=== PATIENT | male | born 1955 | race Caucasian/White ===

== ENCOUNTER → 2017-06-27 | Day surgery (SDC) | payer OTHER ==
[2017-06-21 08:22] VITALS: Ht 188 cm; Wt 100.0 kg
[~2017-06-27] VITALS: Ht 188 cm; Wt 100.0 kg
[~2017-06-27] MED LIST: CLB/200 PO; LIDOCAINE HCL 2% 2 ML VIAL (20MG/ML) ONE; OMEP20CA9 PO; POTA540T PO; PROPOFOL IV EMULSION 10 MG/ML 20 ML VIAL IV ONE; SODIUM CHLORIDE 0.9% 500ML 500 ML IV ONE; TAMS0.4C38 PO
--- NOTE | 2017-06-27 10:55 | Endo History and Physical ---
History & Physical Date of Service: Jun 27, 2017. Chief Complaint: Dysphagia, Reflux Referring Physician: Dr Kamilla Marrero History of Present Illness dysphagia, reflux Past Surgical History Hx Cardiac Surgery: No Hx Internal Defibrillator: No Hx Pacemaker: No Hx Abdominal Surgery: No Hx of Implantable Prosthesis: No Hx Post-Op Nausea and Vomiting: No Hx Cancer Surgery: No Hx Thoracic Surgery: No Hx Orthopedic: No Hx Urinary Tract Surgery: Yes (LITHOTRIPSY) Family History None Social History Smoking Status: Never Smoker Hx Substance Use: No Hx Alcohol Use: No Allergies Coded Allergies: No Known Allergies (Verified , 06/27/17) Current Medications Reported Home Medications Medications Dose Route/Sig Max Daily Dose Days Date Category Potassium Citrate (Potassium Citrate (Alkalinizer) 540 Mg Tab 1 Tab PO DAILY PRN 06/21/17 Reported CeleBREX (Celecoxib) 200 Mg Cap 200 Mg PO BID 06/21/17 Reported Flomax (Tamsulosin Hcl) 0.4 Mg Cap 0.4 Mg PO QPM 06/21/17 Reported Prilosec (Omeprazole) 20 Mg Cap 20 Mg PO QPM 06/21/17 Reported Vital Signs Weight (Kilograms): 100 Height (Feet): 6 Height (Inches): 2 Date Time Temp Pulse Resp B/P (MAP) Pulse Ox O2 Delivery O2 Flow Rate FiO2 06/27/17 09:31 36.5 56 20 101/71 (81) 96 Room Air Physical Exam General Appearance: no apparent distress Respiratory/Chest: Auscultation: breath sounds normal Cardiovascular: Heart Auscultation: RRR Abdomen: Inspection & Palpation: soft Assessment and Plan GERD - EGD
--- NOTE | 2017-06-27 11:46 | Anesthesiology Progress Note ---
Anesthesia Post Op Note Date & Time Jun 27, 2017 at 11:46 Vital Signs Vital Signs Past 12 Hours Date Time Temp Pulse Resp B/P (MAP) Pulse Ox O2 Delivery O2 Flow Rate FiO2 06/27/17 11:40 59 18 117/68 (84) 96 Room Air 06/27/17 11:25 66 16 96/66 (76) 96 Room Air 06/27/17 09:31 36.5 56 20 101/71 (81) 96 Room Air Notes Mental Status: alert / awake / arousable, participated in evaluation Pt Amnestic to Procedure: Yes Nausea / Vomiting: adequately controlled Pain: adequately controlled Airway Patency, RR, SpO2: stable & adequate BP & HR: stable & adequate Hydration State: stable & adequate Anesthetic Complications: no major complications apparent
--- NOTE | 2017-06-27 11:52 | GI REPORT ---
Procedure Date: 06/27/2017 9:37 AM Procedure: Upper GI endoscopy Indications: Dysphagia Medicines: See the Anesthesia note for documentation of the administered medications Complications: No immediate complications. Estimated Blood Loss: Estimated blood loss: none. Procedure: Pre-Anesthesia Assessment: - ASA Grade Assessment: II - A patient with mild systemic disease. After obtaining informed consent, the endoscope was passed under direct vision. Throughout the procedure, the patient's blood pressure, pulse, and oxygen saturations were monitored continuously. The scope was introduced through the mouth, and advanced to the second part of duodenum. The upper GI endoscopy was accomplished without difficulty. The patient tolerated the procedure well. Findings: There was a mild ring at 35 cm. There was a mild ring at the GE junction at 40 cm. There was a small hiatal hernia. There were a few small antral erosions. The stomach was otherwise normal. The duodenum was normal. A TTS balloon was inflated to 20 mm over the distal and GE junction ring. The ring was then fractured with a biopsy forceps. Recommendation: - Continue PPI therapy. - Discharge patient to home. Mike Casas M.D. Mike Casas MD 06/27/2017 11:52:01 AM This report has been signed electronically. Note Initiated On: 06/27/2017 9:37 AM I attest to the content of the Intraoperative Record and orders documented therein, exceptions below
--- NOTE | 2017-06-27 11:53 | Discharge Instructions ---
Endoscopy Patient Instructions Date / Procedure(s) Performed Jun 27, 2017. EGD Allergy Information Coded Allergies: No Known Allergies (Verified , 06/27/17) Discharge Date / Findings Jun 27, 2017. Ring at GE junction, ring at lower esophagus. Mild antral gastritis. Dilated, biopsies. Provider Instructions Activity Restrictions - No exercising or heavy lifting for 24 hours. - Do not drink alcohol the day of the procedure. - Do not drive a car or operate machinery until the day after the procedure. - Do not make any important decisions or sign important papers in 24 hours after the procedure. Following Day: - Return to full activity which may include returning to work/school. Diet Start your diet with liquids and light foods (jello, soup, juice, toast). Then eat your usual diet if not nauseated. Treatment For Common After Affects For mild abdominal pain, bloating, or excessive gas: - Rest - Eat lightly - Lie on right side Follow-Up Information Follow-up with Dr Brizuela, Dr Kohli as scheduled Anesthesia Information What You Should Know You have had a procedure that required some medicine to reduce anxiety and discomfort. This treatment is called moderate sedation. After receiving the treatment, you may be sleepy, but you will be able to breathe on your own. The effects of the treatment may last for several hours. Follow these instructions along with Activity/Diet recommendations noted above: * Do NOT do anything where dizziness or clumsiness would be dangerous. * Rest quietly at home today, then you can be up and about tomorrow. * Have a responsible person stay with you the rest of today. * You may have had an I.V. today. If so, you may take the dressing off later today. Recommendations Call your doctor if: * Trouble breathing * Continuous vomiting for more than 24 hours * Temperature above 101 degrees * Severe abdominal pain or bloating * Pain not relieved by pain medicine ordered * There is increased drainage or redness from any incision * A large amount of rectal bleeding greater than 2-3 tablespoons. (If you had a polyp/s removed or have hemorrhoids, a small amount of blood - from the rectum is to be expected.) * You have any unanswered questions or concerns. IN THE EVENT OF A SERIOUS EMERGENCY, GO TO THE NEAREST EMERGENCY ROOM Your discharge instructions were prepared by provider Mike Ann. Patient Instructions Signature Page Reyes Avendano Patient (or Guardian) Signature/Date: I have read and understand the instructions given to me by my caregivers. Caregiver/RN/Doctor Signature/Date: The above-named patient and/or guardian has received patient instructions on this date. + Original Patient Signature Page (only) stays with chart. Please make copy for patient.
[2017-06-27 11:56] VITALS: BP 118/85; PULSE 58; O2SAT 96
== END | disposition home or self-care (01) ==
LOC: C.GI 09:08
PROVIDERS: ATTEND Internal Medicine Gastroenterology
DX: R13.10 Dysphagia, unspecified (principal); K21.9 Gastro-esophageal reflux disease without esophagitis; K29.50 Unspecified chronic gastritis without bleeding; K20.9 Esophagitis, unspecified; G47.33 Obstructive sleep apnea (adult) (pediatric); K44.9 Diaphragmatic hernia without obstruction or gangrene; Z79.899 Other long term (current) drug therapy; Z90.89 Acquired absence of other organs

== ENCOUNTER 2018-12-02 09:47 | Inpatient (IN) ==
--- NOTE | 2018-11-08 12:30 | PAT Medication Instructions ---
Medication Instructions Date of Service November 08, 2018 Home Medications omeprazole 20 mg PO DAILY PRN potassium citrate 10 meq PO DAILY PRN tamsulosin 0.4 mg PO HS PRN naproxen 500 mg PO BID ASK your surgeon for instructions naproxen 500 mg PO BID DO NOT take the morning of surgery potassium citrate 10 meq PO DAILY PRN Take morning of surgery With a small sip of water, OTHERWISE NOTHING TO EAT OR DRINK AFTER MIDNIGHT: omeprazole 20 mg PO DAILY PRN (if needed) Take evening before surgery tamsulosin 0.4 mg PO HS PRN (if needed) Other Notes If you have any questions please call us at [phone] or [phone] or [phone] or [phone]
--- NOTE | 2018-11-13 10:46 | Anesthesiology Consultation ---
Date of Service November 13, 2018 Assessment & Plan (1) Encounter for pre-operative examination: - S/P L3-L4 decompression/fusion: 04/24/18: Grade view 1, MAC 3, ETT 8.0 at [facility] Chart Review Chart Review: Acceptable Risk for Surgery (pending surgeon-ordered PCP clearance scheduled 11/22 (Chata)) and Patient seen in Pre Admission Testing Teaching & Discussion Pre-Anesthesia Teaching/Discussion Notes: Instructed NPO after midnight before surgery,except medications with 15 cc of water. Medication instructions provided according to the PAT guidelines. History Surgery Operation Date: 12/02/18 11:50 Proposed Procedures p Left Total Hip Arthroplasty - Andrew Onofre Height/Weight Height: 6 ft 1 in Weight: 106.5 kg Allergies Allergy/AdvReac Type Severity Reaction Status Date / Time No Known Allergies Allergy Verified 11/07/18 08:19 Medications Home Medications Medication Instructions Recorded Confirmed Last Taken omeprazole 20 mg PO DAILY PRN 04/16/18 11/07/18 04/24/18 05:30 potassium citrate 10 meq PO DAILY PRN 04/16/18 11/07/18 04/17/18 08:00 tamsulosin 0.4 mg PO HS PRN 04/16/18 11/07/18 04/22/18 20:00 naproxen 500 mg PO BID 11/07/18 11/07/18 Unknown Past Medical History Medical History Degenerative disc disease GERD (gastroesophageal reflux disease) CONTROLLED Hemochromatosis LAST PHLEBOTOMY SEVERAL MONTHS AGO; PER PATIENT, HEMATOLOGY AWARE OF UPCOMING PROCEDURE AND STATES PHLEBOTOMY NOT NEEDED PRIOR TO PROCEDURE GIVEN MOST RECENT LABS Kidney stones Osteoarthritis Sleep apnea RADHA= NO DEVICE S/P UPPP Exercise / Class Metabolic Activity II 4-5 Yardwork/Stairs/Walk up hill Past Family History Family History Other No pertinent family history Past Surgical History Surgical History Fusion of spine LUMBAR History of colonoscopy History of cystoscopy History of esophagogastroduodenoscopy (EGD) History of lithotripsy History of tonsillectomy S/P UPPP (uvulopalatopharyngoplasty) Past Anesthesia History No Hx of Anesthesia Complications and No Family Hx of Anesthesia Complications History of PONV No Hx of PONV and No Hx of Motion Sickness Social History Smoking Status: Never smoker Do You Dip or Chew Tobacco: No Hx Alcohol Use: Yes Alcohol type: beer, wine and hard liquor alcohol intake frequency: holidays/special occasions only Hx Substance Use: No substance use type: does not use Review of Systems Patient denies chest pain, shortness of breath, dyspnea on exertion, cough, wheezing, palpitations. Physical Exam Vital Signs VITALS BP 105/73 (BP typically low to normal range per patient) P 64 TEMP 98.4 SP02 97%RA RESP 16 PHYSICAL Full neck and c-spine range of motion. Full TMJ range of motion. TMD 3.5 finger breaths Mallampati Score 3 Dentition: intact, crowns on molars Lungs: clear throughout to auscultation Cardiac: regular rate and rhythm, no murmurs noted Spine: normal Carotid arteries: negative bruit Extremities: no edema Testing Laboratory Results 11/13/18 11:00 11/13/18 11:00 11/13/18 11/13/18 11/13/18 11:00 11:00 11:00 PT 11.7 INR 1.2 H APTT 26.5 Urine Color Yellow Urine Appearance Clear Urine pH 5.0 Ur Specific [place] 1.021 Urine Protein Negative Urine Glucose (UA) Negative Urine Ketones Negative Urine Nitrite Negative Ur Leukocyte Esterase Negative Blood Type O Positive Antibody Screen NEGATIVE Electrocardiogram Date: 04/17/18 NSR at 64bpm. LAD. Chest X-Ray Date: 04/17/19 Findings: + NAD
[2018-11-13 11:59] LABS: Basophils # (auto) 0.01 K/uL (0-0.2); Basophils % (auto) 0.3 %; Eosinophils # (auto) 0.11 K/uL (0-0.5); Eosinophils % (auto) 2.8 %; Hematocrit (blood only) 45.9 % (42-52); Hemoglobin 16.8 g/dL (14.0-18.0); Lymphocytes # (auto) 1.34 K/uL (1.2-3.4); Lymphocytes % (auto) 33.5 %; Mean Corpuscular Hgb Conc 36.6 g/dL (32-36); Mean Corpuscular Volume 90.7 fL (80-100); Mean Platelet Volume 10.1 fL (7.4-10.4); Monocytes # (auto) 0.34 K/uL (0.11-0.59); Monocytes % (auto) 8.5 %; Neutrophils % (auto) 54.9 %; Platelet Count 143 K/uL (130-400); RDW Coefficient of Variation 12.9 % (11.5-14.5); RDW Standard Deviation 42.4 fL (36.4-46.3); Red Blood Count 5.06 M/uL (4.7-6.1)
[2018-11-13 12:03] LABS: Appearance Urine Clear (Clear); Bilirubin Urine Negative (Negative); Blood Urine Negative (Negative); Color Urine Yellow; Glucose Urine UA Negative (Negative); Ketones Urine Negative (Negative); Leukocyte Esterase Urine Negative (Negative); Nitrite Urine Negative (Negative); Protein Urine Negative (Negative); Specific Gravity Urine 1.021 (1.000-1.030); Urobilinogen Urine Negative (Negative)
[2018-11-13 12:12] LABS: INR 1.2 (0.9-1.1); Partial Thromboplastin Time 26.5 Seconds (21.0-31.0); Prothrombin Time 11.7 Seconds (9.0-12.0)
[2018-11-13 13:00] LABS: Albumin Level 4.3 gm/dl (3.4-5.0); BUN Creatinine Ratio 16.9 (10-20); Creatinine Clr Calc Pharmacy 95.6 ml/min; Est GFR (African American) 88.4; Est GFR (Non-African American) 76.2; Potassium 3.9 mmol/L (3.5-5.1)
[2018-11-13 13:02] LABS: Albumin Globulin Ratio 1.5 (0.9-2); Bilirubin,Total 1.6 mg/dl (0.2-1); Globulin 2.8 gm/dl (2.5-4.0); Total Protein 7.1 gm/dl (6.4-8.2)
--- NOTE | 2018-11-29 10:42 | History & Physical Report ---
Date of Service November 29, 2018 Assessment & Plan (1) Degenerative joint disease of left hip: plan is to admit and undergo left eran. History of Present Illness Chief Complaint: left hip pain Primary Care Provider: Alvarado Brizuela MD pt with years of left hip and groin pain despite nsaids and pt. pt is ready for eran Allergies Allergy/AdvReac Type Severity Reaction Status Date / Time No Known Allergies Allergy Verified 11/07/18 08:19 Home Medications Home Medications Medication Instructions Recorded Confirmed Type omeprazole 20 mg PO DAILY PRN 04/16/18 11/07/18 History potassium citrate 10 meq PO DAILY PRN 04/16/18 11/07/18 History tamsulosin 0.4 mg PO HS PRN 04/16/18 11/07/18 History naproxen 500 mg PO BID 11/07/18 11/07/18 History Past Med/Surg History Medical History Degenerative disc disease GERD (gastroesophageal reflux disease) CONTROLLED Hemochromatosis LAST PHLEBOTOMY SEVERAL MONTHS AGO; PER PATIENT, HEMATOLOGY AWARE OF UPCOMING PROCEDURE AND STATES PHLEBOTOMY NOT NEEDED PRIOR TO PROCEDURE GIVEN MOST RECENT LABS Kidney stones Osteoarthritis Sleep apnea RADHA= NO DEVICE S/P UPPP Surgical History Fusion of spine LUMBAR History of colonoscopy History of cystoscopy History of esophagogastroduodenoscopy (EGD) History of lithotripsy History of tonsillectomy S/P UPPP (uvulopalatopharyngoplasty) Family History Other No pertinent family history Social History Preferred Language: Kyr[place]z Communication Ability: Effective Embryology Professor Required: No Beliefs That Will Affect Care: None Current Living Situation: Spouse Other Information That Helps Us Care for You: No Feels Safe at Home: Yes Safety Concerns: Feels Safe At This Time Smoking Status: Never smoker Do You Dip or Chew Tobacco: No Second Hand Exposure: No Tobacco Cessation Education Requested by Patient: No Hx Alcohol Use: Yes Alcohol type: beer, wine and hard liquor Hx Substance Use: No Review of Systems All systems reviewed & are unremarkable except as noted in HPI & below Physical Exam Constitutional: WD/WN, vitals as above Neck: trachea midline, no thyromegaly Respiratory: normal respiratory effort, lungs clear to auscultation Cardiovascular: RRR, no murmur, no edema Gastrointestinal (Abdomen): normal bowel sounds, soft, nontender, no hepatosplenomegaly Musculoskeletal: Hip: + limited ROM of hip and + hip ROM with crepitation
[~2018-12-02 09:47] MED LIST changes: +ACETAMINOPHEN 500 MG TAB PO SCH; +BUPIVACAINE 0.5 % 5 MG/1 ML PF 10ML VIAL ONE; +CEFAZOLIN 2000MG 2,000 MG/15 ML SYR IV SCH; -CLB/200 PO; +CeleBREX 200 MG CAP PO SCH; +FAMOTIDINE 20 MG TAB PO SCH; -LIDOCAINE HCL 2% 2 ML VIAL (20MG/ML) ONE; +LR 500ML BOLUS, THEN 15ML/HR IV SCH; +LR 60ML/HR IV SCH; +METOCLOPRAMIDE HCL 10 MG TABLET PO SCH; -OMEP20CA9 PO; -POTA540T PO; -PROPOFOL IV EMULSION 10 MG/ML 20 ML VIAL IV ONE; +ROPIVACAINE 0.5% HCL/PF 150 MG, BUPIVACAINE 0.5% MPF 30 ML, EPINEPHrine 30MG/30ML (OR U... INFIL SCH; -SODIUM CHLORIDE 0.9% 500ML 500 ML IV ONE; -TAMS0.4C38 PO; +TRANEXAMIC ACID 1,000 MG **IV Intra-op IV SCH; +TRANEXAMIC ACID 1,000 MG **IV Pre-op IV SCH; +dexAMETHasone 4 MG TAB PO SCH
[2018-12-02] MEDS ORDERED: ATROPINE SULFATE 0.1 MG/ML 10ML SYR IV PRN (10:20)
[2018-12-02] MEDS ORDERED: ONDANSETRON INJ 2 MG/ML 2 ML VIAL IV PRN ×2 (10:20→13:48)
[2018-12-02] MEDS ORDERED: fentaNYL citrate 100 MCG/2 ML VIAL IV PRN (10:20)
[2018-12-02] MEDS ORDERED: ePHEDrine sulfate 50 MG/ML AMP IV PRN (10:20)
[2018-12-02] MEDS ORDERED: MIDAZOLAM HCL 1 MG/ML 2ML VIAL ONE (10:32)
[2018-12-02] MEDS ORDERED: fentaNYL citrate 100 MCG/2 ML VIAL ONE (10:32)
--- NOTE | 2018-12-02 10:41 | History & Physical Bridge Note ---
Date of Service December 02, 2018 History & Physical Bridge Note I have examined the patient, reviewed the History & Physical and in the interval since the performance of the History & Physical I have noted the following changes of clinical significance: no changes noted
[2018-12-02] MEDS ORDERED: BACITRACIN INJ 50,000 UNIT VIAL ONE (10:56)
[2018-12-02] MEDS ORDERED: ORTHO JOINT ANESTHETIC ONE (10:56)
[2018-12-02] MEDS ORDERED: PROPOFOL IV EMULSION 10 MG/ML 20 ML VIAL IV ONE (12:12)
--- NOTE | 2018-12-02 12:42 | Post Operative Brief Note ---
Immediate Post Op Note v1 Date of Surgery December 02, 2018 Pre & Post Diagnosis Operation Date: 12/02/18 12:20 Pre-Op Diagnosis: Left Hip Osteoarthritis and obesity Post-Op Diagnosis: Left Hip Osteoarthritis and obesity Procedure Operation Date: 12/02/18 12:20 Actual Procedures p Left Total Hip Arthroplasty, Uncemented(Left) - Andrew Onofre Surgeon Andrew Onofre Varnisher Сергей Cristina PA-C Estimated Blood Loss 10 Findings Consistent with Post-Op Diagnosis Drains Hemovac Drain Complications none Disposition Disposition: Recovery Room
[2018-12-02] MEDS ORDERED: PHENYLEPHRINE 100MCG/ML 5ML SYR ONE (12:44)
[2018-12-02] MEDS ORDERED: ePHEDrine sulfate 50 MG/ML SYR ONE (12:44)
--- NOTE | 2018-12-02 12:44 | Operative Report ---
Post Operative Report Pre & Post Diagnosis Operation Date: 12/02/18 12:20 Pre-Op Diagnosis: Left Hip Osteoarthritis and obesity Post-Op Diagnosis: Left Hip Osteoarthritis and obesity Procedure Operation Date: 12/02/18 12:20 Actual Procedures p Left Total Hip Arthroplasty, Uncemented(Left) - Andrew Onofre Surgeon Andrew Onofre Nurse Rn [facility] Сергей Cristina PA-C Estimated Blood Loss 10 Findings Consistent with Post-Op Diagnosis Specimens None Complications none Description of Procedure IMPLANTS USED: Ramy size 58 mm acetabular cup, one acetabular screw, 36 mm X3 elevated liner, a #8 Accolade 2 stem with a 132 degree neck, 36 mm -2.5 mm ceramic head INDICATIONS: Mr. Avendano is a pleasant male who has unfortunately failed all forms of conservative measures. Therefore, they have has decided to undergo elective surgical intervention. All risks and benefits of the surgery were discussed with the patient and the family in entirety. PROCEDURE: The patient was brought to the operating room and properly identified by myself, anesthesia, and staff. Patient was given a spinal anesthetic and placed on the operating table with the left hip up. The hip was then prepped and draped in the standard orthopedic fashion. We made a standard posterolateral approach over the greater trochanteric area. We then dissected down to subcutaneous tissue until the fascia was identified. We incised the fascia in line with the skin incision. We then split the gluteus lisandra muscles with finger dissection. We then put the Charnley retractor in place. We placed the retractor underneath the gluteus medius to expose the piriformis. The piriformis was then tagged with a tag suture and released from the insertion from the greater trochanteric area with the use of electrocautery. We then performed a T capsulotomy and the femoral head and neck were atraumatically dislocated. We then performed femoral neck osteotomy at the pre-template site. We removed the femoral head and neck without difficulty. We then placed the retractor around the acetabulum. We then began to ream the acetabulum to the a ppropriate size. We then impacted the cup into place and had a very good fixation within the pelvis. We then put the liner in place as well. Then using multiple size approaches from the Accolade 2 system a size #8 fit very nicely in the proximal femur. I then put trial components in place. WE had very good range of motion, excellent stability, and excellent leg length equality. We removed the trial components and irrigated the wound. We then impacted the components in place and irrigated the wound once more. We then closed the capsule and fascia with a 0 Vicryl suture, the deep dermis with 2-0 Vicryl suture, and finally the skin with a running 3-0 Vicryl subcuticular stitch. A sterile dressing was applied. The patient was taken to the recovery room in stable condition. Patient had a BMI of 31 because of his increased obesity it took us about extra 40% longer to the procedure and required the assistance of an extra person. Due to the complex nature of the procedure, the entire surgery was performed with the operational assistance of Сергей Cristina PA-C. The legal document assistant was under direct supervision, was involved in the actual performance of all aspects of the surgical procedure including hemostasis, tissue retraction and incision, instrument management, patient positioning, and wound closure. I attest to the content of the Intraoperative Record and any orders documented therein. Any exceptions are noted below.
--- NOTE | 2018-12-02 13:25 | Anesthesiology Progress Note ---
Date of Service December 02, 2018 Anesthesia Post Procedure Vital Signs Vital Signs: Temp Pulse Pulse Resp BP Pulse Ox 12/02/18 13:15 97.7 F 66 15 98/56 L 95 12/02/18 13:05 61 14 102/63 95 12/02/18 12:59 96.8 F L 71 12 89/52 L 95 12/02/18 10:11 98.2 F 72 18 138/86 96 Transfer of Care Handoff Completed per policy Notes Mental Status: alert / awake / arousable and participated in evaluation Patient Amnestic to Procedure: Yes Nausea / Vomiting: adequately controlled Pain: adequately controlled Airway Patency, RR, SpO2: stable & adequate BP & HR: stable & adequate Hydration State: stable & adequate Neuraxial Anesthesia: was administered and sensory block is resolving Anesthetic Complications: no major complications apparent and Pt Satisfied with anesthetic care
[2018-12-02] MEDS ORDERED: TAMSULOSIN HCL 0.4 MG CAP PO PRN (13:48)
[2018-12-02] MEDS ORDERED: SODIUM CHLORIDE 0.9% 1000ML 1,000 ML IV SCH (13:48)
[2018-12-02] MEDS ORDERED: OXYCODONE HCL IR 5 MG TAB (IMMEDIATE RELEASE) PO PRN (13:48)
[2018-12-02] MEDS ORDERED: POTASSIUM CITRATE 10 MEQ TAB PO PRN (13:48)
[2018-12-02] MEDS ORDERED: ALUMINUM/MAGNESIUM SUSP 30 ML UDC PO PRN (13:48)
[2018-12-02] MEDS ORDERED: BISACODYL 10 MG SUPP PR PRN (13:48)
[2018-12-02] MEDS ORDERED: MAGNESIUM HYDROXIDE SUSP 30 ML UDC PO PRN (13:48)
[2018-12-02] MEDS ORDERED: NALOXONE HCL 0.4 MG/1 ML VIAL/CARP IV PRN (13:48)
[2018-12-02] MEDS ORDERED: METOCLOPRAMIDE HCL INJ 5 MG/ML 2 ML VIAL IV PRN (13:48)
[2018-12-02] MEDS ORDERED: TRANEXAMIC ACID 1,000 MG in 0.9 % SODIUM CHLORIDE 100 ML IV SCH (18:38)
[2018-12-02] MEDS: ASPIRIN 81 MG ECTAB PO SCH (20:25)
[2018-12-02] MEDS: CEFAZOLIN 2000MG 2,000 MG/15 ML SYR IV SCH (20:25)
[2018-12-02] MEDS: DOCUSATE SODIUM 100 MG CAP PO SCH (20:25)
[2018-12-02] MEDS ORDERED: SENNA 8.6 MG TAB PO SCH (21:00)
[2018-12-02] MEDS: ACETAMINOPHEN 500 MG TAB PO SCH (21:41)
[2018-12-03] MEDS: TRAMADOL HCL 50 MG TABLET PO PRN ×3 (00:29→13:55)
[2018-12-03] MEDS ORDERED: COUGH DROP (SUGAR FREE) LOZ 24 LOZ/1 BOX BUCCAL ONE (04:31)
[2018-12-03] MEDS: CEFAZOLIN 2000MG 2,000 MG/15 ML SYR IV SCH (05:00)
[2018-12-03] MEDS: ACETAMINOPHEN 500 MG TAB PO SCH ×2 (05:12→13:55)
[2018-12-03 05:46] LABS: Hematocrit (blood only) 40.7 % (42-52); Hemoglobin 14.7 g/dL (14.0-18.0); Immature Granulocytes # (auto) 0.04 K/uL (0.00-0.02); Immature Granulocytes % (auto) 0.3 %; Lymphocytes # (auto) 0.87 K/uL (1.2-3.4); Lymphocytes % (auto) 6.5 %; Mean Corpuscular Hgb Conc 36.1 g/dL (32-36); Mean Corpuscular Volume 91.5 fL (80-100); Monocytes % (auto) 5.2 %; Neutrophils # (auto) 11.79 K/uL (1.4-6.5); Platelet Count 125 K/uL (130-400); RDW Coefficient of Variation 12.8 % (11.5-14.5); RDW Standard Deviation 42.3 fL (36.4-46.3); Red Blood Count 4.45 M/uL (4.7-6.1)
[2018-12-03 06:53] LABS: BUN Creatinine Ratio 15.1 (10-20); Calcium 8.7 mg/dl (8.5-10.1); Potassium 4.5 mmol/L (3.5-5.1)
--- NOTE | 2018-12-03 07:31 | Anesthesiology Progress Note ---
Date of Service December 03, 2018 Anesthesia Post Procedure Vital Signs Vital Signs: Temp Pulse Pulse Resp BP Pulse Ox 12/03/18 02:50 36.9 C 77 16 105/59 L 93 12/02/18 23:15 36.7 C 80 16 100/66 94 12/02/18 19:05 36.6 C 71 16 94/55 L 96 12/02/18 16:38 36.4 C L 63 18 99/67 L 93 12/02/18 15:34 57 L 18 98/62 L 94 12/02/18 14:58 36.5 C 62 18 104/70 12/02/18 14:25 36.6 C 89 18 119/75 100 12/02/18 14:20 36.4 C L 61 18 108/67 12/02/18 13:35 36.4 C L 68 14 97/62 L 93 12/02/18 13:15 36.5 C 66 15 98/56 L 95 12/02/18 13:05 61 14 102/63 95 12/02/18 12:59 36.0 C L 71 12 89/52 L 95 12/02/18 10:11 36.8 C 72 18 138/86 96 Pain Intensity Left Hip: Pain Intensity: 4 Notes Mental Status: alert / awake / arousable and participated in evaluation Patient Amnestic to Procedure: Yes Nausea / Vomiting: adequately controlled Pain: adequately controlled Airway Patency, RR, SpO2: stable & adequate BP & HR: stable & adequate Hydration State: stable & adequate Neuraxial Anesthesia: was administered and sensory block resolved Anesthetic Complications: no major complications apparent and Pt Satisfied with anesthetic care
[2018-12-03] MEDS ORDERED: dexAMETHasone 10 MG in SYRINGE 0 ML IV SCH (08:00)
[2018-12-03] MEDS: ASPIRIN 81 MG ECTAB PO SCH (08:33)
[2018-12-03] MEDS: DOCUSATE SODIUM 100 MG CAP PO SCH (08:33)
[2018-12-03] MEDS ORDERED: MULTIVITAMIN TAB PO SCH (09:00)
--- NOTE | 2018-12-03 09:12 | Progress Note ---
DATE: 12/03/2018 SUBJECTIVE: The patient is postop day 1 status post left total hip arthroplasty. He is currently sitting up in bed and is awake and alert and oriented. He has no complaints this morning and pain is controlled. He denies shortness of breath, chest pain, lightheadedness. He states he is hoping to go home this afternoon some time. OBJECTIVE: Silverlon dressings are clean, dry and intact. Thigh and calves were soft, nontender. Neurovascularly intact. Toes were mobile. Hip was located. Hemovac drainage was 50 mL from the previous shift. Hemoglobin was 14.7. ASSESSMENT: Left total hip arthroplasty, postop day 1. PLAN: The patient will be started on PT, OT protocols. Weightbearing as tolerated. Continue DVT prophylaxis and pain management as written. Discharge planning. The patient is planning for Home Health Services upon discharge. Dr. Carlton is to see the patient this afternoon for rounds and plans for discharge home today if progressing with PT and pain controlled. ROSS
--- NOTE | 2018-12-04 16:20 | Discharge Summary ---
DISCHARGE DIAGNOSIS: Degenerative joint disease, left hip. SECONDARY DIAGNOSES: Obesity, gastroesophageal reflux disease, hemochromatosis, renal calculi, sleep apnea. CONSULTS: None. COMPLICATIONS: None. PROCEDURES: Left total hip arthroplasty performed by Dr. Onofre on 12/02/2018. BRIEF HISTORY: As dictated in the history and physical. HOSPITAL SUMMARY: The patient was admitted on the above-noted date and had the above-noted surgery performed, which he tolerated well. On the first postoperative day, he was currently sitting up in bed, awake and alert and had no complaints that morning. Pain was controlled. Denies shortness of breath, chest pain or lightheadedness. The patient states he was hoping to go home that afternoon. Silverlon dressings were clean, dry and intact. Thigh and calves were soft, nontender. Neurovascularly intact. Toes were mobile. Hip was located. Hemovac drainage was 50 mL the previous shift. Hemoglobin was 14.7. He was started on physical therapy protocol and continued on DVT prophylaxis and pain management. He progressed with his PT and was ambulating independently in the hallways. Pain was remaining controlled and vital signs were stable and it was felt that he could be discharged to home with plans for home health services. For further review, please see chart. LABORATORY AND X-RAY DATA: As per chart. DISCHARGE INSTRUCTIONS: The patient was discharged home in satisfactory condition on 11/23/2018. DIET: Regular. ACTIVITY: Weightbearing as tolerated left lower extremity with walker. Follow [facility] instruction sheets and special care instructions as noted. Follow up with Dr. Onofre in 2 weeks. The patient to call for appointment if one has made for you. DISCHARGE MEDICATIONS: Acetaminophen 1000 mg p.o. q. 8 hours, aspirin 81 mg p.o. b.i.d. for 30 days, cefadroxil 500 mg p.o. b.i.d., sennoside 17.2 mg p.o. at bedtime. Resume home meds as listed and stop taking naproxen.
== END 2018-12-03 15:55 | disposition home health service (06) | DRG 470 ==
LOC: ASU 09:47 → 3E 13:03

== ENCOUNTER 2018-12-30 07:20 | Inpatient (IN) ==
--- NOTE | 2018-12-23 14:13 | Anesthesiology Consultation ---
Date of Service December 23, 2018 Assessment & Plan (1) Encounter for pre-operative examination: - S/P Left ZELDA: 12/02/18: SAB x 1 at L4-L5 at [facility] Chart Review Chart Review: Acceptable Risk for Surgery (pending surgeon-ordered PCP clearance (Dr. Brizuela)) and Patient NOT seen in Pre Admission Testing History Surgery Operation Date: 12/30/18 09:30 Proposed Procedures p Right Total Hip Arthroplasty - Andrew Onofre Height/Weight Height: 6 ft 2 in Weight: 106.594 kg Allergies Allergy/AdvReac Type Severity Reaction Status Date / Time No Known Allergies Allergy Verified 12/23/18 09:18 Medications Home Medications Medication Instructions Recorded Confirmed Last Taken omeprazole 20 mg PO DAILY PRN 04/16/18 12/23/18 11/25/18 08:00 potassium citrate 10 meq PO DAILY PRN 04/16/18 12/23/18 11/25/18 08:00 tamsulosin 0.4 mg PO HS PRN 04/16/18 12/23/18 11/25/18 08:00 aspirin [Ecotrin Low Strength] 81 mg PO BID 30 Days #60 tab 12/03/18 12/23/18 Unknown cefadroxil 500 mg PO BID #60 cap 12/03/18 12/23/18 Unknown sennosides [Senokot] 17.2 mg PO HS #30 tab 12/03/18 12/23/18 Unknown diclofenac sodium 75 mg PO . HOLD FOR SURGERY 12/23/18 12/23/18 Unknown Past Medical History Medical History Degenerative disc disease GERD (gastroesophageal reflux disease) CONTROLLED Hemochromatosis LAST PHLEBOTOMY SEVERAL MONTHS AGO; PER PATIENT, HEMATOLOGY AWARE OF UPCOMING PROCEDURE AND STATES PHLEBOTOMY NOT NEEDED PRIOR TO PROCEDURE GIVEN MOST RECENT LABS Kidney stones HX Osteoarthritis Sleep apnea RADHA= NO DEVICE S/P UPPP Past Family History Family History Other No pertinent family history Past Surgical History Surgical History Fusion of spine LUMBAR History of colonoscopy History of cystoscopy History of esophagogastroduodenoscopy (EGD) History of left hip replacement Left ZELDA: 12/02/18: SAB x 1 at L4-L5 at [facility] History of lithotripsy History of tonsillectomy S/P UPPP (uvulopalatopharyngoplasty) Social History Smoking Status: Never smoker Do You Dip or Chew Tobacco: No Hx Alcohol Use: No Alcohol type: beer, wine and hard liquor alcohol intake frequency: holidays/special occasions only Hx Substance Use: No substance use type: does not use Testing Laboratory Results 12/03/18 WBC 13.4 (surgeon aware) H/H 14.7/40.7 PLATELETS 125 SODIUM 139 POTASSIUM 4.5 CHLORIDE 108 CO2 27 BUN 19 CREATININE 1.23 GLUCOSE 152 11/13/18 PT 11.7 PTT 26.5 INR 1.2 UA negative TYPE AND SCREEN O+Ab- Electrocardiogram Date: 04/17/18 NSR at 64bpm. LAD. Chest X-Ray Date: 04/17/18 Findings: + NAD
--- NOTE | 2018-12-29 09:21 | History & Physical Report ---
Date of Service December 29, 2018 Assessment & Plan (1) Degenerative joint disease of right hip: plan is to admit and undergo a right total hip arthroplasty. History of Present Illness Chief Complaint: right hip pain Primary Care Provider: Alvarado Brizuela MD pt with years of right hip and groin pain. Recently had his left hip replaced and doing very well. Obviously already nsaids and therapy in the past with no relief. Also had lumbar surgery in past. Hes ready for a right total hip replacement. Allergies Allergy/AdvReac Type Severity Reaction Status Date / Time No Known Allergies Allergy Verified 12/23/18 09:18 Home Medications Home Medications Medication Instructions Recorded Confirmed Type omeprazole 20 mg PO DAILY PRN 04/16/18 12/23/18 History potassium citrate 10 meq PO DAILY PRN 04/16/18 12/23/18 History tamsulosin 0.4 mg PO HS PRN 04/16/18 12/23/18 History aspirin [Ecotrin Low Strength] 81 mg PO BID 30 Days #60 tab 12/03/18 12/23/18 Rx cefadroxil 500 mg PO BID #60 cap 12/03/18 12/23/18 Rx sennosides [Senokot] 17.2 mg PO HS #30 tab 12/03/18 12/23/18 Rx diclofenac sodium 75 mg PO . HOLD FOR SURGERY 12/23/18 12/23/18 History Past Med/Surg History Medical History Degenerative disc disease GERD (gastroesophageal reflux disease) CONTROLLED Hemochromatosis LAST PHLEBOTOMY SEVERAL MONTHS AGO; PER PATIENT, HEMATOLOGY AWARE OF UPCOMING PROCEDURE AND STATES PHLEBOTOMY NOT NEEDED PRIOR TO PROCEDURE GIVEN MOST RECENT LABS Kidney stones HX Osteoarthritis Sleep apnea RADHA= NO DEVICE S/P UPPP Surgical History Fusion of spine LUMBAR History of colonoscopy History of cystoscopy History of esophagogastroduodenoscopy (EGD) History of left hip replacement Left ZELDA: 12/02/18: SAB x 1 at L4-L5 at [facility] History of lithotripsy History of tonsillectomy S/P UPPP (uvulopalatopharyngoplasty) Family History Other No pertinent family history Social History Preferred Language: Congolese Communication Ability: Effective Senior Project Leader/Team Lead Required: No Beliefs That Will Affect Care: None marital status: Current Living Situation: Spouse Other Information That Helps Us Care for You: No Feels Safe at Home: Yes Safety Concerns: Feels Safe At This Time Smoking Status: Never smoker Do You Dip or Chew Tobacco: No Second Hand Exposure: No Tobacco Cessation Education Requested by Patient: No Hx Alcohol Use: No Hx Substance Use: No Review of Systems All systems reviewed & are unremarkable except as noted in HPI & below Physical Exam Constitutional: WD/WN, vitals as above Neck: trachea midline, no thyromegaly Respiratory: normal respiratory effort, lungs clear to auscultation Cardiovascular: RRR, no murmur, no edema Gastrointestinal (Abdomen): normal bowel sounds, soft, nontender, no hepatosplenomegaly Musculoskeletal: no cyanosis or clubbing, extremities motor strength 5/5 Hip: + limited ROM of hip and + hip ROM with crepitation
[2018-12-30] MEDS ORDERED: PROPOFOL IV EMULSION 10 MG/ML 20 ML VIAL IV ONE ×2 (07:30→09:11)
[2018-12-30] MEDS ORDERED: MIDAZOLAM HCL 1 MG/ML 2ML VIAL ONE (07:31)
[2018-12-30] MEDS ORDERED: fentaNYL citrate 100 MCG/2 ML VIAL ONE (07:31)
--- NOTE | 2018-12-30 08:14 | History & Physical Bridge Note ---
Date of Service December 30, 2018 History & Physical Bridge Note I have examined the patient, reviewed the History & Physical and in the interval since the performance of the History & Physical I have noted the following changes of clinical significance: no changes noted
[2018-12-30] MEDS ORDERED: ORTHO JOINT ANESTHETIC ONE (08:33)
[2018-12-30] MEDS ORDERED: BACITRACIN INJ 50,000 UNIT VIAL ONE (08:34)
[2018-12-30] MEDS ORDERED: ATROPINE SULFATE 0.1 MG/ML 10ML SYR IV PRN (09:02)
[2018-12-30] MEDS ORDERED: HYDROmorphone INJ 1 MG/ML SYRINGE IV PRN (09:02)
[2018-12-30] MEDS ORDERED: ONDANSETRON INJ 2 MG/ML 2 ML VIAL IV PRN ×2 (09:02→12:19)
[2018-12-30] MEDS ORDERED: ePHEDrine sulfate 50 MG/ML AMP IV PRN (09:02)
[2018-12-30] MEDS ORDERED: KETOROLAC 30 MG/ML VIAL IV PRN (09:02)
[2018-12-30] MEDS ORDERED: DEXAMETHASONE SOD INJ 4 MG/ML VIAL ONE (09:11)
[2018-12-30] MEDS ORDERED: ONDANSETRON INJ 2 MG/ML 2 ML VIAL ONE (09:11)
[2018-12-30] MEDS ORDERED: ePHEDrine sulfate 50 MG/ML SYR ONE (09:23)
--- NOTE | 2018-12-30 10:26 | Operative Report ---
Post Operative Report Pre & Post Diagnosis Operation Date: 12/30/18 10:00 Pre-Op Diagnosis: Right Hip Osteoarthritis Post-Op Diagnosis: Right Hip Osteoarthritis Procedure Operation Date: 12/30/18 10:00 Actual Procedures p Right Total Hip Arthroplasty(Right) - Andrew Onofre Surgeon Andrew Onofre Gift Shop Manager Сергей Cristina PA-C Estimated Blood Loss 40 Findings Consistent with Post-Op Diagnosis Specimens None Complications none Disposition Disposition: Recovery Room Description of Procedure IMPLANTS USED: [place] size 58 mm Trident 2 Tritanium acetabular cup, one acetabular screw, 36 mm X3 elevated liner, a #9 Accolade 2 stem with a 127 neck, 36 mm +5 ceramic head INDICATIONS: Mr. Avendano is a pleasant male who has unfortunately failed all forms of conservative measures. Therefore, they have has decided to undergo elective surgical intervention. All risks and benefits of the surgery were discussed with the patient and the family in entirety. PROCEDURE: The patient was brought to the operating room and properly identified by myself, anesthesia, and staff. Patient was given a spinal anesthetic and placed on the operating table with the right hip up. The hip was then prepped and draped in the standard orthopedic fashion. We made a standard posterolateral approach over the greater trochanteric area. We then dissected down to subcutaneous tissue until the fascia was identified. We incised the fascia in line with the skin incision. We then split the gluteus lisandra muscles with finger dissection. We then put the Charnley retractor in place. We placed the retractor underneath the gluteus medius to expose the piriformis. The piriformis was then tagged with a tag suture and released from the insertion from the greater trochanteric area with the use of electrocautery. We then performed a T capsulotomy and the femoral head and neck were atraumatically dislocated. We then performed femoral neck osteotomy at the pre-template site. We removed the femoral head and neck without difficulty. We then placed the retractor around the acetabulum. We then began to ream the acetabulum to the appropriate size. We then impacted the cup into place and had a very good fixation within the pelvis. We then put the liner in place as well. Then using multiple size approaches from the Accolade 2 system a size #9 fit very nicely in the proximal femur. I then put trial components in place. WE had very good range of motion, excellent stability, and excellent leg length equality. We removed the trial components and irrigated the wound. We then impacted the components in place and irrigated the wound once more. We then closed the capsule and fascia with a 0 Vicryl suture, the deep dermis with 2-0 Vicryl suture, and finally the skin with a running 3-0 Vicryl subcuticular stitch. A sterile dressing was applied. The patient was taken to the recovery room in stable condition. Due to the complex nature of the procedure, the entire surgery was performed with the operational assistance of Сергей Cristina PA-C. The driller's assistant was under direct supervision, was involved in the actual performance of all aspects of the surgical procedure including hemostasis, tissue retraction and incision, instrument management, patient positioning, and wound closure. I attest to the content of the Intraoperative Record and any orders documented therein. Any exceptions are noted below.
--- NOTE | 2018-12-30 11:50 | Anesthesiology Progress Note ---
Date of Service December 30, 2018 Anesthesia Post Procedure Vital Signs Vital Signs: Temp Pulse Pulse Resp BP Pulse Ox 12/30/18 11:35 66 18 102/66 94 12/30/18 11:25 72 17 106/65 96 12/30/18 11:15 66 12 90/59 L 97 12/30/18 11:05 68 12 95/61 L 95 12/30/18 10:55 72 17 103/57 L 96 12/30/18 10:49 36.1 C L 74 20 95/64 L 97 12/30/18 07:50 37.0 C 67 20 127/76 94 Pain Intensity Right Chest: Pain Intensity: 2 Right Hip: Pain Intensity: 0 Left Hip: Pain Intensity: 1 Transfer of Care Handoff Completed per policy Notes Mental Status: alert / awake / arousable Patient Amnestic to Procedure: Yes Nausea / Vomiting: adequately controlled Pain: adequately controlled Airway Patency, RR, SpO2: stable & adequate BP & HR: stable & adequate Hydration State: stable & adequate Anesthetic Complications: no major complications apparent
[2018-12-30] MEDS ORDERED: POTASSIUM CITRATE 10 MEQ TAB PO PRN (12:19)
[2018-12-30] MEDS ORDERED: OXYCODONE HCL IR 5 MG TAB (IMMEDIATE RELEASE) PO PRN (12:19)
[2018-12-30] MEDS ORDERED: BISACODYL 10 MG SUPP PR PRN (12:19)
[2018-12-30] MEDS ORDERED: METOCLOPRAMIDE HCL INJ 5 MG/ML 2 ML VIAL IV PRN (12:19)
[2018-12-30] MEDS ORDERED: MAGNESIUM HYDROXIDE SUSP 30 ML UDC PO PRN (12:19)
[2018-12-30] MEDS ORDERED: NALOXONE HCL 0.4 MG/1 ML VIAL/CARP IV PRN (12:19)
[2018-12-30] MEDS ORDERED: TAMSULOSIN HCL 0.4 MG CAP PO PRN (12:19)
[2018-12-30] MEDS: SODIUM CHLORIDE 0.9% 1000ML 1,000 ML IV SCH (14:28)
[2018-12-30] MEDS: ACETAMINOPHEN 500 MG TAB PO SCH ×2 (15:32→23:19)
[2018-12-30] MEDS ORDERED: TRANEXAMIC ACID 1,000 MG in 0.9 % SODIUM CHLORIDE 100 ML IV SCH (16:17)
[2018-12-30] MEDS: CEFAZOLIN 2000MG 2,000 MG/15 ML SYR IV SCH (20:51)
[2018-12-30] MEDS: DOCUSATE SODIUM 100 MG CAP PO SCH (20:51)
[2018-12-30] MEDS: ASPIRIN 81 MG ECTAB PO SCH (20:51)
[2018-12-30] MEDS ORDERED: SENNA 8.6 MG TAB PO SCH ×2 (21:00)
[2018-12-30] MEDS: TRAMADOL HCL 50 MG TABLET PO PRN (21:03)
[2018-12-31] MEDS: SODIUM CHLORIDE 0.9% 1000ML 1,000 ML IV SCH (00:19)
[2018-12-31] MEDS: CEFAZOLIN 2000MG 2,000 MG/15 ML SYR IV SCH (04:03)
[2018-12-31] MEDS: TRAMADOL HCL 50 MG TABLET PO PRN ×3 (04:12→13:22)
[2018-12-31 06:17] LABS: Hematocrit (blood only) 35.4 % (42-52); Hemoglobin 12.9 g/dL (14.0-18.0); Immature Granulocytes # (auto) 0.01 K/uL (0.00-0.02); Immature Granulocytes % (auto) 0.1 %; Lymphocytes # (auto) 0.69 K/uL (1.2-3.4); Lymphocytes % (auto) 6.7 %; Mean Corpuscular Hgb Conc 36.4 g/dL (32-36); Mean Corpuscular Volume 91.7 fL (80-100); Mean Platelet Volume 9.7 fL (7.4-10.4); Monocytes # (auto) 0.78 K/uL (0.11-0.59); Monocytes % (auto) 7.5 %; Neutrophils # (auto) 8.86 K/uL (1.4-6.5); Neutrophils % (auto) 85.7 %; Platelet Count 129 K/uL (130-400); Red Blood Count 3.86 M/uL (4.7-6.1); White Blood Count 10.34 K/uL (4.8-10.8)
[2018-12-31 06:47] LABS: BUN Creatinine Ratio 19.8 (10-20); Calcium 8.4 mg/dl (8.5-10.1); Creatinine Clr Calc Pharmacy 91.7 ml/min; Est GFR (African American) 83.5; Est GFR (Non-African American) 72.1; Potassium 4.4 mmol/L (3.5-5.1)
[2018-12-31] MEDS: ACETAMINOPHEN 500 MG TAB PO SCH (07:31)
--- NOTE | 2018-12-31 07:46 | Anesthesiology Progress Note ---
Date of Service December 31, 2018 Anesthesia Post Procedure Vital Signs Vital Signs: Temp Pulse Pulse Resp BP Pulse Ox 12/31/18 07:30 36.5 C 60 18 109/65 95 12/31/18 07:12 36.6 C 65 18 166/69 H 99 12/31/18 04:00 36.7 C 77 16 100/61 95 12/30/18 23:35 36.6 C 72 16 100/62 94 12/30/18 19:14 36.6 C 78 16 118/67 91 12/30/18 15:08 36.6 C 71 16 103/65 94 12/30/18 14:10 36.5 C 78 16 101/64 97 12/30/18 13:10 71 16 99/63 L 95 12/30/18 12:42 36.4 C L 72 16 109/67 96 12/30/18 12:10 36.7 C 70 16 97/61 L 96 12/30/18 11:55 68 12 104/59 L 94 12/30/18 11:45 36.6 C 74 15 110/61 96 12/30/18 11:35 66 18 102/66 94 12/30/18 11:25 72 17 106/65 96 12/30/18 11:15 66 12 90/59 L 97 12/30/18 11:05 68 12 95/61 L 95 12/30/18 10:55 72 17 103/57 L 96 12/30/18 10:49 36.1 C L 74 20 95/64 L 97 12/30/18 07:50 37.0 C 67 20 127/76 94 Pain Intensity Right Chest: Pain Intensity: 2 Right Hip: Pain Intensity: 0 Left Hip: Pain Intensity: 1 Notes Mental Status: alert / awake / arousable and participated in evaluation Patient Amnestic to Procedure: Yes Nausea / Vomiting: adequately controlled Pain: adequately controlled Airway Patency, RR, SpO2: stable & adequate BP & HR: stable & adequate Hydration State: stable & adequate Neuraxial Anesthesia: was administered and sensory block resolved Anesthetic Complications: no major complications apparent and Pt Satisfied with anesthetic care
[2018-12-31] MEDS ORDERED: dexAMETHasone 10 MG in SYRINGE 0 ML IV SCH (08:00)
[2018-12-31] MEDS: DOCUSATE SODIUM 100 MG CAP PO SCH (08:35)
[2018-12-31] MEDS: ASPIRIN 81 MG ECTAB PO SCH (08:35)
[2018-12-31] MEDS ORDERED: MULTIVITAMIN TAB PO SCH (09:00)
--- NOTE | 2018-12-31 09:00 | Orthopedic Progress Note ---
Date of Service December 31, 2018 Assessment & Plan (1) Degenerative joint disease of right hip: Postop day 1 status post right total hip arthroplasty. PT and OT protocols today. Weightbearing as tolerated. DVT prophylaxis with aspirin twice daily and SCDs. Pain management continued as written. Concerning the patient's chest pain, it does not appear to be cardiac in origin however I will discuss the case with medicine service and possibly have them stop by and examined him. This does not appear to be a costochondritis but possibility could be muscular in origin as well. We will stop back and recheck on him later morning to see how he is progressing. Subjective Postop day 1 status post right total hip arthroplasty. Patient is lying in bed awake and alert. He states that he discussed with nursing this morning that he is been having some right-sided chest pain. He relates to me that this is been ongoing since Sunday. Patient points to his right breast and states that the pain starts there and can be exacerbated with deep breaths which radiates into his back and scapula. He states that his right hip surgery hurts a little bit more than his left hip did. Tolerating well. He denies any shortness of breath or lightheadedness. He is hoping to go home today. Physical Exam Physical Exam: Silverlon dressing is intact. Hemovac drainage was approximately 40 cc from the latest shift. Leg lengths appear equal. Calves are soft nontender. Neurovascular intact. Toes are mobile. He has no tenderness on palpation of his anterior chest at this time. Patient does take a deep breath and states that he does get the sharp pain over the right breast that goes into his back. No pain over the sternum. No pain over the left chest. Results & Data Vital Signs (Past 12 Hours) Vital Signs Temp Pulse Resp BP Pulse Ox 12/31/18 07:30 36.5 C 60 18 109/65 95 12/31/18 04:00 36.7 C 77 16 100/61 95 12/30/18 23:35 36.6 C 72 16 100/62 94 Laboratory Results Laboratory Results WBC 10.34 K/uL (4.8-10.8) 12/31/18 05:36 RBC 3.86 M/uL (4.7-6.1) L 12/31/18 05:36 Hgb 12.9 g/dL (14.0-18.0) L 12/31/18 05:36 Hct 35.4 % (42-52) L 12/31/18 05:36 MCV 91.7 fL (80-100) 12/31/18 05:36 MCH 33.4 pg (25-34) 12/31/18 05:36 MCHC 36.4 g/dL (32-36) H 12/31/18 05:36 RDW Std Deviation 43.0 fL (36.4-46.3) 12/31/18 05:36 RDW Coeff of Sofie 13.0 % (11.5-14.5) 12/31/18 05:36 Plt Count 129 K/uL (130-400) L 12/31/18 05:36 MPV 9.7 fL (7.4-10.4) 12/31/18 05:36 Immature Gran % (Auto) 0.1 % 12/31/18 05:36 Neut % (Auto) 85.7 % 12/31/18 05:36 Lymph % (Auto) 6.7 % 12/31/18 05:36 [place] % (Auto) 7.5 % 12/31/18 05:36 Eos % (Auto) 0.0 % 12/31/18 05:36 Baso % (Auto) 0.0 % 12/31/18 05:36 Immature Gran # (Auto) 0.01 K/uL (0.00-0.02) 12/31/18 05:36 Neut # (Auto) 8.86 K/uL (1.4-6.5) H 12/31/18 05:36 Lymph # (Auto) 0.69 K/uL (1.2-3.4) L 12/31/18 05:36 [place] # (Auto) 0.78 K/uL (0.11-0.59) H 12/31/18 05:36 Eos # (Auto) 0.00 K/uL (0-0.5) 12/31/18 05:36 Baso # (Auto) 0.00 K/uL (0-0.2) 12/31/18 05:36 Sodium 140 mmol/L (136-145) 12/31/18 05:36 Potassium 4.4 mmol/L (3.5-5.1) 12/31/18 05:36 Chloride 109 mmol/L (98-107) H 12/31/18 05:36 Carbon Dioxide 25 mmol/L (21-32) 12/31/18 05:36 Anion Gap 6.0 (3-11) 12/31/18 05:36 BUN 22 mg/dl (7-18) H 12/31/18 05:36 Creatinine 1.10 mg/dl (0.6-1.4) 12/31/18 05:36 Est Cr Clr Drug Dosing 91.7 ml/min 12/31/18 05:36 Est GFR ( Amer) 83.5 12/31/18 05:36 Est GFR (Non-Af Amer) 72.1 12/31/18 05:36 BUN/Creatinine Ratio 19.8 (10-20) 12/31/18 05:36 Glucose 143 mg/dl (70-99) H 12/31/18 05:36 Calcium 8.4 mg/dl (8.5-10.1) L 12/31/18 05:36 Blood Type O Positive 12/30/18 07:47 Antibody Screen NEGATIVE 12/30/18 07:47
--- NOTE | 2018-12-31 09:52 | XRay Report ---
TWO VIEW CHEST CLINICAL HISTORY: Right-sided pleuritic chest pain. FINDINGS: PA and lateral chest radiographs are compared to study dated 04/17/2018. The cardiomediastin al silhouette is unremarkable. There is left basilar scarring/atelectasis. Mild chronic elevation of the right hemidiaphragm is similar to previous. No airspace consolidation is seen. There is no pleura l effusion or pneumothorax. The bony thorax appears intact. IMPRESSION: No active disease in the chest. Electronically signed by: Shay Damico M.D. 12/31/2018 9:51 AM
--- NOTE | 2018-12-31 15:13 | Hospitalist Consultation ---
Date of Consultation December 31, 2018 Assessment & Plan (1) Chest pain: Likely musculoskeletal in nature. Patient did not have reproducible pain in the chest, but did have some in the same dermatome on the right side of the back with some knotted muscles as well. Discussed the case with Сергей Velarde and recommended Flexeril for possible muscle spasm. I also counseled the patient that ice and/or heat could improve the pain. If the pain is not improving over the next few days, the patient is to call his PCP. History of Present Illness Attending Physician: Andrew Onofre History of Present Illness 63yo M w/ hx of osteoarthritis who underwent right ZELDA on 12 30. Hospitalist medicine consult was requested on 12 31 for right-sided chest pain. Patient reports a prior to his surgery he was working around his house more extensively than usual. He reports lifting a circular saw and putting on a shelf. He went back inside and was sitting down eating lunch when he noticed some right-sided chest pain. The pain is worse with inspiration, twisting, and arm movements. He feels that it radiates from his right chest into his back and is a sharp pain. He reports the pain is been getting mildly worse over the last few days. He assumed he pulled a muscle, but has not been taking anything for it. He denies any other review of systems with the pain including lightheadedness, diaphoresis, shortness of breath, nausea, vomiting. Allergies Allergy/AdvReac Type Severity Reaction Status Date / Time No Known Allergies Allergy Verified 12/30/18 07:49 Home Medications Home Medications Medication Instructions Recorded Confirmed Type omeprazole 20 mg PO DAILY PRN 04/16/18 12/30/18 History potassium citrate 10 meq PO DAILY PRN 04/16/18 12/30/18 History tamsulosin 0.4 mg PO HS PRN 04/16/18 12/30/18 History cefadroxil 500 mg PO BID #60 cap 12/03/18 12/30/18 Rx sennosides [Senokot] 17.2 mg PO HS #30 tab 12/03/18 12/30/18 Rx acetaminophen [Tylenol Extra 1,000 mg PO Q8H 14 Days #84 tab 12/30/18 Rx Strength] aspirin [Ecotrin Low Strength] 81 mg PO BID 30 Days #60 tab 12/30/18 Rx celecoxib [Celebrex] 200 mg PO BID PRN #60 cap 12/31/18 Rx tramadol 50 mg PO Q4H PRN #30 tab 12/31/18 Rx Patient History Medical History Degenerative disc disease GERD (gastroesophageal reflux disease) CONTROLLED Hemochromatosis LAST PHLEBOTOMY SEVERAL MONTHS AGO; PER PATIENT, HEMATOLOGY AWARE OF UPCOMING PROCEDURE AND STATES PHLEBOTOMY NOT NEEDED PRIOR TO PROCEDURE GIVEN MOST RECENT LABS Kidney stones HX Osteoarthritis Sleep apnea RADHA= NO DEVICE S/P UPPP Surgical History Fusion of spine LUMBAR History of colonoscopy History of cystoscopy History of esophagogastroduodenoscopy (EGD) History of left hip replacement Left ZELDA: 12/02/18: SAB x 1 at L4-L5 at [facility] History of lithotripsy History of tonsillectomy S/P UPPP (uvulopalatopharyngoplasty) Family History Other No pertinent family history Social History Preferred Language: Luxembourgish Communication Ability: Effective Church Official Required: No Beliefs That Will Affect Care: None marital status: Current Living Situation: Spouse Other Information That Helps Us Care for You: No Feels Safe at Home: Yes Safety Concerns: Feels Safe At This Time Smoking Status: Never smoker Do You Dip or Chew Tobacco: No Second Hand Exposure: No Tobacco Cessation Education Requested by Patient: No Hx Alcohol Use: No Hx Substance Use: No Review of Systems Review of Systems: All systems reviewed & are unremarkable except as noted in HPI & below Physical Exam Constitutional: WD/WN, vitals as above Eyes: EOM intact bilaterally; no conjunctival abnormality ENMT: external ear and nose normal, oropharynx normal Neck: trachea midline, no thyromegaly normal visual inspection Respiratory: normal respiratory effort, lungs clear to auscultation no respiratory distress Cardiovascular: RRR, no murmur, no edema Gastrointestinal (Abdomen): Inspection/Auscultation: abdomen normal to inspection; abdomen not distended Musculoskeletal: no cyanosis or clubbing, extremities motor strength 5/5 Drain in right hip. Skin: no rashes, warm and dry Neurologic: moves all extremities and awake Psychiatric: Orientation: alert, oriented to person and cooperative Results & Data Vital Signs (Past 12 Hours) Vital Signs Temp Pulse Resp BP Pulse Ox 12/31/18 12:10 36.4 C L 76 18 129/81 96 12/31/18 07:30 36.5 C 60 18 109/65 95 12/31/18 04:00 36.7 C 77 16 100/61 95 PG Care Time/CCT Total # of Minutes Spent Total Time Spent with Patient: Total time spent is greater than 50% in coordination of care (as documented) at patient's floor/unit and/or counseling patient:
--- NOTE | 2018-12-31 17:28 | Hospitalist Consultation ---
Date of Consultation December 31, 2018 Assessment & Plan (1) Chest pain: Patient's chest pain seems to be related to pleuritic nature which could be from physical activity but did prior to coming to the hospital but also considering his previous esophageal issues could be related to this. I did offer the patient GI cocktail which he declined. Patient did have a chest x-ray without any significant changes. At this juncture I feel it safe for him to be discharged home with close follow-up with his primary care provider and also considering gastroenterology follow-up. History of Present Illness Attending Physician: Andrew Onofre History of Present Illness Is personally called by the physician's sales office assistant for orthopedics regarding this patient's right-sided chest pain. He is slated for discharge today and the chest pain was concerning. I did evaluate the patient he was in stable condition the history likens his pain back to the actually the day before admission for his elective hip replacement. This occurred after eating. The patient does have some esophageal strictures which occasionally need to be stretched however the patient denies any dysphagia to solids or feelings of food got stuck. The pain is mechanically worsened with moving his neck taking a deep breath he does not have any cough there is also no skin changes or obviously rep roducible musculoskeletal manipulation of the pain. Otherwise the patient is appropriate and ready to go home his vital signs are stable does not have any hypoxia tachycardia or tachypnea Allergies Allergy/AdvReac Type Severity Reaction Status Date / Time No Known Allergies Allergy Verified 12/30/18 07:49 Home Medications Home Medications Medication Instructions Recorded Confirmed Type omeprazole 20 mg PO DAILY PRN 04/16/18 12/30/18 History potassium citrate 10 meq PO DAILY PRN 04/16/18 12/30/18 History tamsulosin 0.4 mg PO HS PRN 04/16/18 12/30/18 History cefadroxil 500 mg PO BID #60 cap 12/03/18 12/30/18 Rx sennosides [Senokot] 17.2 mg PO HS #30 tab 12/03/18 12/30/18 Rx acetaminophen [Tylenol Extra 1,000 mg PO Q8H 14 Days #84 tab 12/30/18 Rx Strength] aspirin [Ecotrin Low Strength] 81 mg PO BID 30 Days #60 tab 12/30/18 Rx celecoxib [Celebrex] 200 mg PO BID PRN #60 cap 12/31/18 Rx tramadol 50 mg PO Q4H PRN #30 tab 12/31/18 Rx Patient History Medical History Degenerative disc disease GERD (gastroesophageal reflux disease) CONTROLLED Hemochromatosis LAST PHLEBOTOMY SEVERAL MONTHS AGO; PER PATIENT, HEMATOLOGY AWARE OF UPCOMING PROCEDURE AND STATES PHLEBOTOMY NOT NEEDED PRIOR TO PROCEDURE GIVEN MOST RECENT LABS Kidney stones HX Osteoarthritis Sleep apnea RADHA= NO DEVICE S/P UPPP Surgical History Fusion of spine LUMBAR History of colonoscopy History of cystoscopy History of esophagogastroduodenoscopy (EGD) History of left hip replacement Left ZELDA: 12/02/18: SAB x 1 at L4-L5 at [facility] History of lithotripsy History of tonsillectomy S/P UPPP (uvulopalatopharyngoplasty) Family History Other No pertinent family history Social History Preferred Language: Croatian Communication Ability: Effective 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 No double vision blurry vision No problems with speech or swallowing No palpitations, or pressure, chest pain is pleuritic and also reproducible by movement of his neck No Wheezing or breathing issues No abdominal pain nausea vomiting diarrhea changes in appetite or weight No burning urine urine frequency or changes in color No focal joint pain or muscle pain No skin rashes or oral lesions No unusual bruising or bleeding No focused back pain or numbness or loss of strength No changes in memory or confusion Physical Exam Physical Exam: The patient appeared well nourished and normally developed. Vital signs as documented. Head exam is unremarkable. normocephalic, atraumatic Neck is without jugular venous distension, thyromegaly, or lymphademopathy Lungs are clear to auscultation and percussion. Cardiac exam reveals Rhythm is regular. First and second heart sounds normal. Abdominal exam reveals normal bowel sounds, no masses, no organomegaly Neurologic exam is A&Ox3, no focal deficits, strength is equal bilateral Psychologically seems neither anxious or depressed Skin is warm Dry without bruises or lesions Results & Data Vital Signs (Past 12 Hours) Vital Signs Temp Pulse Resp BP Pulse Ox 12/31/18 12:10 36.4 C L 76 18 129/81 96 12/31/18 07:30 36.5 C 60 18 109/65 95 PG Care Time/CCT Total # of Minutes Spent Total Time Spent with Patient: Total time spent is greater than 50% in coordination of care (as documented) at patient's floor/unit and/or counseling patient:
--- NOTE | 2019-01-03 14:19 | Discharge Summary ---
DISCHARGE DIAGNOSIS: Degenerative joint disease, right hip. SECONDARY DIAGNOSES: Gastroesophageal reflux disease, hemochromatosis, renal calculi, sleep apnea. CONSULTS: Lavell Artis. COMPLICATIONS: None. PROCEDURES: Right total hip arthroplasty. HISTORY: As dictated in history and physical. HOSPITAL SUMMARY: The patient was admitted on the above-noted date and had the above-noted surgery performed, which he tolerated well. On his first postoperative day, patient was lying in bed, awake and alert. He stated that he discussed with nursing that morning that he had been having some right-sided chest pain. He related that this had been ongoing since prior to his admission. He pointed to his right breast area to show where the pain starts and it can be exacerbated with deep breaths and radiates into his back and scapula. He states that his hip surgery site had a little discomfort but was tolerating well. He had no shortness of breath or lightheadedness and was hoping to go home. Silverlon dressing was intact. Hemovac drainage was approximately 40 mL from the previous shift. Leg lengths were equal. Calves were soft, nontender, neurovascularly intact. Toes were mobile. He had no tenderness on palpation of the anterior chest. The patient does take a deep breath and states that he does get the sharp pain over the right breast that goes into his back. No pain over the sternum. No pain over the left chest. Vital signs were stable. He was afebrile. Hemoglobin was 12.9. He was started on PT, OT protocols, DVT prophylaxis and pain management. Medicine service was consulted just to see him for his chest pain and it was felt to be likely musculoskeletal in nature and the plans were to follow up with his PCP if it continued. The rest of his stay was essentially uneventful and it was felt he could be discharged to home on 12/31/2018. For further review, please see chart. LABORATORY AND X-RAY DATA: As per chart. DISCHARGE INSTRUCTIONS: The patient was discharged to home in satisfactory condition on 12/31/2018. DIET: Regular. ACTIVITY: Weightbearing as tolerated on the right lower extremity with walker. Follow ZELDA instruction sheets and special care instructions as noted per Dr. Onofre and followup with Dr. Onofre in 2 weeks. The patient to call for appointment if one has not been made for you. DISCHARGE MEDICATIONS: Acetaminophen 1000 mg p.o. q. 8 hours, aspirin 81 mg p.o. b.i.d., Celebrex 200 mg p.o. b.i.d., tramadol 50 mg p.o. q. 4 hours p.r.n. Resume home meds as listed and stop taking previous aspirin dosage, diclofenac sodium and tramadol.
== END 2018-12-31 14:01 | disposition home health service (06) | DRG 470 ==
LOC: ASU 07:20 → 3E 10:53